=== PATIENT | female | born 1960 | race Caucasian/White ===

== ENCOUNTER 2018-06-23 13:50 | Emergency (ER) | payer BC ==
[~2018-06-23 13:50] MED LIST: ISOVUE-370 76%-LOCM 1 ML ONE; Iopamidol 370 76% 50 ML VIAL FS ONE
[2018-06-23] MEDS ORDERED: Morphine 4 MG/ML VIAL ONE ×2 (14:01→19:45)
[2018-06-23] MEDS ORDERED: Ondansetron PF 4 MG/2 ML Vial ONE (14:01)
[2018-06-23 14:30] LABS: #Basophils 0.1 thou/uL (0.0-0.2); #Lymphocytes 0.7 thou/uL (1.20-3.40); #Monocytes 0.3 thou/uL (0.11-0.59); #Neutrophils 7.4 thou/uL (1.40-6.50); %Basophils 0.9 % (0.0-1.0); %Eosinophils 0.1 % (0.0-10.0); %Lymphocytes 7.8 % (21.0-51.0); %Monocytes 3.7 % (0.0-10.0); %Neutrophils 87.4 % (42.0-75.0); Hemoglobin 14.8 g/dL (12.0-16.0); Mean Corpuscular HGB CONC 34.3 g/dL (32.0-36.0); Mean Corpuscular Hemoglobin 35.1 pg (27.0-31.0); Mean Platelet Volume 7.6 fL (7.4-10.4); Platelet Count 206 thou/uL (130-400); RBC Distribution Width 11.1 % (11.5-14.5); Red Blood Cell (RBC) Count 4.22 mill/uL (4.20-5.40); White Blood Cell (WBC) Count 8.4 thou/uL (4.8-10.8)
[2018-06-23 14:36] LABS: Bilirubin Negative (Negative); Blood, Urine Negative (Negative); Clarity CLEAR (Clear); Glucose, Urine (Dipstick) Negative (Negative); Leukocyte Negative (Negative); Nitrite Negative (Negative); Protein, Urine (Dipstick) Negative (Neg-Trace); Specific Gravity, Urine 1.013 (1.002-1.036); Urobilinogen 0.2 mg/dL (0.2-1.0); pH, Urine 6.5 (5.0-9.0)
[2018-06-23 14:45] LABS: ALT (SGPT) 29 U/L (8-55); AST (SGOT) 37 U/L (5-34); Albumin 4.6 g/dL (3.5-5.0); Alkaline Phosphatase 59 U/L (40-150); Anion Gap 20 mmol/L (10-20); BUN (Urea Nitrogen) 7 mg/dL (9.8-20.1); Bilirubin, Total 0.4 mg/dL (0.2-1.2); Calc. Creatinine Clearance 0 mL/min (70-130); Calcium 9.9 mg/dL (7.8-10.44); Carbon Dioxide 19 mmol/L (22-29); Chloride 99 mmol/L (98-107); Estimated GFR-MDRD Greater than 90; Globulin 2.7 g/dL (2.4-3.5); Glucose 78 mg/dL (70-105); Lipase 42 U/L (8-78); Potassium 4.1 mmol/L (3.5-5.1); Protein, Total 7.3 g/dL (6.0-8.3); Sodium 134 mmol/L (136-145)
--- NOTE | 2018-06-23 15:59 | CT ---
CT ABDOMEN AND PELVIS WITH IV CONTRAST: 06/23/2018 PROVIDED CLINICAL HISTORY: Right lower quadrant pain. COMPARISON: 08/18/2009 FINDINGS: The visualized lung bases are free or significant opacity. The liver, spleen, pancreas, kidneys, and adrenal glands demonstrate an unremarkable CT appearance. There is apparent focal mural thickening and adjacent mesenteric stranding about a ileal loop of ileu m, in the right lower quadrant. This is remote from the terminal ileum. The appendix is not distinc tly identified. Lack of oral contrast material limits evaluation. There is no evidence for bowel obstruction. There is no additional inflammatory fat stranding eviden t. No evidence for significant free fluid. No evidence for free air. The osseous structures demonstrate no concerning osteoblastic or osteolytic lesions. Degenerative ch anges are seen involving the spine. IMPRESSION: 1. Findings compatible with enteritis, involving a loop of small bowel within the right lower quadra nt. 2. Nonvisualization of the appendix. POS: SHARRON
[2018-06-23 18:14] LABS: #Monocytes 0.2 thou/uL (0.11-0.59); #Neutrophils 5.4 thou/uL (1.40-6.50); %Basophils 0.7 % (0.0-1.0); %Eosinophils 0.3 % (0.0-10.0); %Lymphocytes 15.4 % (21.0-51.0); %Monocytes 3.6 % (0.0-10.0); Hemoglobin 13.7 g/dL (12.0-16.0); Mean Corpuscular HGB CONC 34.3 g/dL (32.0-36.0); Mean Corpuscular Hemoglobin 34.2 pg (27.0-31.0); Mean Corpuscular Volume 99.6 fL (78.0-98.0); Mean Platelet Volume 7.4 fL (7.4-10.4); Platelet Count 199 thou/uL (130-400); Red Blood Cell (RBC) Count 4.01 mill/uL (4.20-5.40); White Blood Cell (WBC) Count 6.7 thou/uL (4.8-10.8)
--- NOTE | 2018-06-23 19:01 | CT ---
CT ABDOMEN AND PELVIS NONCONTRAST: 06/23/2018 HISTORY: Abdominal pain with nausea and vomiting. Pain is localized to the right lower quadrant. COMPARISON: Study obtained on 06/23/2018 at 1504 hours. FINDINGS: Oral contrast was administered for this portion of the examination. The small bowel is normal in fausto iber. The previously noted loop of small bowel with mural thickening with adjacent stranding is less apparent. Although the stranding is again present and is noted on the prior study, findings may be related to enteritis. Contrast is seen in the renal collecting systems and urinary bladder, related to the recent contraste d examination. Splenic granuloma is present. There has been no other interval change when compared to the prior contrasted study obtained earlier on today's date. One of the lung bases are imaged on this examination, and there are tiny, less than 4 mm, pleural-bas ed, nodular densities seen adjacent to the major fissure on the right, and at the lateral left lung b ase, which may be related to tiny focal areas of nodular pleural thickening. The lung bases are othe rwise clear. IMPRESSION: 1. No CT evidence of appendicitis. 2. While findings of the thickened loop of bowel and inflammatory changes in the right lower quadran t are less well delineated on this examination, the mild inflammatory change in the right lower quadr ant do persist and, again, findings may be related to enteritis. POS: SHARRONH
== END 2018-06-23 19:51 | disposition home or self-care (01) ==
LOC: ERS 13:50
DX: K52.9 Noninfective gastroenteritis and colitis, unspecified (principal); F17.210 Nicotine dependence, cigarettes, uncomplicated
CPT/HCPCS: 36415; 74176; 74177; 80053; 81003; 83690; 85025; 96361; 96374; 96375; 96376; J2270; J2405

== ENCOUNTER 2020-02-06 01:21 | Emergency (ER) | payer BC ==
[2020-02-06] MEDS ORDERED: Lidocaine 4% Cream 5 GM TUBE w/ Tegaderm ONE (01:44)
[2020-02-06] MEDS ORDERED: Lidocaine 1% (PF) 30 ML VIAL ONE (01:48)
[2020-02-06] MEDS ORDERED: Ketorolac Tromethamine 30 MG/ML VIAL ONE (02:25)
--- NOTE | 2020-02-06 07:54 | RAD ---
Radiograph right humerus 3 views: 02/06/2020 1:46 AM HISTORY: 59-year-old female status post acute traumatic injury to right arm FINDINGS: Fracture of surgical neck of humerus with moderate anteromedial angulation of fracture apex. Some dis placement. No fracture of the mid or distal portions of humerus. No dislocation of glenohumeral joint. IMPRESSION: Acute, traumatic, displaced fracture of proximal metaphysis of humerus.
--- NOTE | 2020-02-06 07:59 | RAD ---
Radiograph right foot 3 views: 02/06/2020 HISTORY: 59-year-old female with acute traumatic right foot pain COMPARISON: None FINDINGS: Focal mild angulation at the neck of the fifth proximal phalanx. No other areas suspicious for fracture. No dislocation. Diffuse osteopenia. IMPRESSION: 1. Slightly angulated fracture at distal metaphysis of proximal phalanx of right fifth toe. Uncertain whether old or acute. 2. Recommend correlation with presence or absence of point tenderness.
== END 2020-02-06 03:13 | disposition home or self-care (01) ==
LOC: ERS 01:21
DX: S42.211A Unspecified displaced fracture of surgical neck of right humerus, initial encounter for closed fracture (principal); F17.210 Nicotine dependence, cigarettes, uncomplicated; W01.198A Fall on same level from slipping, tripping and stumbling with subsequent striking against other object, initial encounter; Y92.009 Unspecified place in unspecified non-institutional (private) residence as the place of occurrence of the external cause
CPT/HCPCS: 12001; 96374; J1885; J2001

== ENCOUNTER 2020-02-10 07:45 | Outpatient (CLI) | payer BC, OTHER ==
--- NOTE | 2020-02-10 14:59 | RAD ---
XR Chest Pa Lat STANDARD History: Preop evaluation Comparison: None. Findings: Patient's right arm is at this time given the artifact of soft tissue attenuation. Lungs ar e without confluent airspace consolidation, pneumothorax or effusion. Calcified granuloma superior segment right lower lobe. Impression: No acute intrathoracic abnormality. Right humeral fracture.
[2020-02-10 16:17] LABS: #Basophils 0.1 thou/uL (0.0-0.2); #Eosinphils 0.1 thou/uL (0.0-0.7); #Lymphocytes 1.6 thou/uL (1.20-3.40); #Monocytes 0.4 thou/uL (0.11-0.59); #Neutrophils 3.6 thou/uL (1.40-6.50); %Basophils 1.1 % (0.0-1.0); %Eosinophils 1.3 % (0.0-10.0); %Lymphocytes 28.1 % (21.0-51.0); %Monocytes 6.8 % (0.0-10.0); %Neutrophils 62.7 % (42.0-75.0); Hemoglobin 12.8 g/dL (12.0-16.0); Mean Corpuscular HGB CONC 33.3 g/dL (32.0-36.0); Mean Corpuscular Hemoglobin 34.6 pg (27.0-31.0); Mean Platelet Volume 7.3 fL (7.4-10.4); Platelet Count 241 thou/uL (130-400); RBC Distribution Width 11.3 % (11.5-14.5); White Blood Cell (WBC) Count 5.7 thou/uL (4.8-10.8)
[2020-02-10 16:40] LABS: Anion Gap 19 mmol/L (10-20); BUN (Urea Nitrogen) 6 mg/dL (9.8-20.1); Calc. Creatinine Clearance 0 mL/min (70-130); Calcium 8.9 mg/dL (7.8-10.44); Carbon Dioxide 21 mmol/L (22-29); Chloride 99 mmol/L (98-107); Estimated GFR-MDRD 81; Glucose 80 mg/dL (70-105); Sodium 135 mmol/L (136-145)
[2020-02-11 13:02] LABS: SARS-CoV-2 MS2 Positive; SARS-CoV-2 N Gene Negative; SARS-CoV-2 S Gene Negative; SARS-CoV-2 by NAA Not Detected (NotDetected); SARS-CoV-2 orf1ab Negative
== END 2020-02-10 07:46 | disposition home or self-care (01) ==
LOC: LABBT 07:45
PROVIDERS: ATTEND Orthopaedic Surgery
DX: Z01.818 Encounter for other preprocedural examination (principal); Z20.828 Contact with and (suspected) exposure to other viral communicable diseases; S42.201A Unspecified fracture of upper end of right humerus, initial encounter for closed fracture
CPT/HCPCS: 71046; 80048; 85025; 87635; U0003

== ENCOUNTER 2020-02-10 13:30 | Outpatient (CLI) | payer BC, OTHER ==
--- NOTE | 2020-02-10 14:27 | CT ---
EXAM: CT Upper Ext Rt WO Con DATE: 02/10/2020 12:00 AM INDICATION: 59-year-old female with history of proximal right humerus fracture COMPARISON: Right humerus radiograph dated February 06, 2020 FINDING: There is diffuse osteopenia. There is a heavily comminuted proximal four-part proximal javy kong fracture. There is a minimally displaced greater tuberosity fracture component. There is a segmental fracture component involving the proximal humeral shaft. The humeral shaft component is dis placed anteriorly and medially one full shaft width. There is some apposition of the fracture fragments of approximately 1.5 cm. There is a mildly comminuted, nondisplaced anterior acromial proce ss fracture best seen on image 18 of series 4.. There is mild AC joint osteoarthrosis. No muscular atrophy is evident. There is a calcified granuloma within the superior segment of the right lower lob e. There are calcified lymph nodes within the right hilar region. IMPRESSION: 1. Comminuted proximal four-part humerus fracture 2. Nondisplaced comminuted anterior acromial process fracture.
== END 2020-02-10 13:31 | disposition home or self-care (01) ==
LOC: SCSCT 13:30
PROVIDERS: ATTEND Orthopaedic Surgery
DX: S42.251A Displaced fracture of greater tuberosity of right humerus, initial encounter for closed fracture (principal); S42.124A Nondisplaced fracture of acromial process, right shoulder, initial encounter for closed fracture
CPT/HCPCS: 71046; 80048; 85025; 87635; 93005; 93010; U0003

== ENCOUNTER 2020-02-12 08:48 | Day surgery (SDC) | payer BC ==
[2020-02-11 09:59] VITALS: BMI 22.8
[2020-02-12] MEDS ORDERED: Midazolam HCl 2 mg/2 ml Vial ONE (10:03)
[2020-02-12] MEDS ORDERED: Fentanyl 100 MCG/2 ML VIAL ONE ×2 (10:04→11:12)
[2020-02-12] MEDS ORDERED: Ketorolac Tromethamine 30 MG/ML VIAL ONE (10:35)
[2020-02-12] MEDS ORDERED: Lidocaine 1% PF 5 ML VIAL ONE (10:35)
[2020-02-12] MEDS ORDERED: Dexamethasone 20 MG/5 ML VIAL ONE (10:35)
[2020-02-12] MEDS ORDERED: Albuterol Sulfate HFA (OR ONLY) ONE (10:35)
[2020-02-12] MEDS ORDERED: Ondansetron PF 4 MG/2 ML Vial ONE (10:35)
[2020-02-12] MEDS ORDERED: Ropivacaine 0.5% HCl/PF (150 MG/30 ML VIAL) ONE (10:35)
[2020-02-12] MEDS ORDERED: PHENYLEPHRINE-NS 100 MCG/ML 10 ML SYRINGE ONE (10:35)
[2020-02-12] MEDS ORDERED: Rocuronium Bromide 10 MG/ML (10ML VIAL) ONE (10:35)
[2020-02-12] MEDS ORDERED: EPHEDRINE 25 MG/5 ML SYRINGE ONE (10:35)
[2020-02-12] MEDS ORDERED: PROPOFOL 200 MG/20 ML VIAL ONE (10:35)
[2020-02-12] MEDS ORDERED: Ropivacaine 0.2% HCl/PF (40 MG/20 ML VIAL) ONE (10:35)
[2020-02-12] MEDS ORDERED: Phenylephrine 10 MG/ML VIAL ONE (12:36)
[2020-02-12] MEDS ORDERED: SUGAMMADEX SODIUM 200 MG/2 ML VIAL ONE (12:55)
[2020-02-12] MEDS ORDERED: PACU-Morphine 4MG/ML VIAL SLOW IVP PRN (12:59)
[2020-02-12] MEDS ORDERED: Ondansetron HCl/PF 4 MG/2 ML Vial IVP PRN (12:59)
[2020-02-12] MEDS ORDERED: Promethazine HCl 25 MG/ML VIAL IM PRN (13:43)
[2020-02-12] MEDS ORDERED: Ropivacaine 0.2% 550 ML 550 ML NERVE BLCK SCH (13:43)
[2020-02-12] MEDS ORDERED: Ondansetron PF 4 MG/2 ML Vial IVP PRN (13:43)
[2020-02-12] MEDS ORDERED: HYDROcodone/Acetaminophen 5/325 mg Tablet PO PRN ×2 (13:43)
[2020-02-12] MEDS ORDERED: traMADol HCl 50 MG TAB PO PRN ×2 (13:43)
[2020-02-12] MEDS ORDERED: Zolpidem Tartrate 5 MG TAB PO PRN (13:43)
[2020-02-12] MEDS ORDERED: Fentanyl 100 MCG/2 ML VIAL SLOW IVP PRN (13:44)
[2020-02-12] MEDS ORDERED: Ketorolac Tromethamine 30 MG/ML VIAL IVP SCH (18:00)
--- NOTE | 2020-02-12 18:46 | RAD ---
THREE FLUROSCOPIC SPOT VIEWS OF THE RIGHT HUMERUS: 02/12/20 INDICATION: History of fracture repair to the right humerus. COMPARISON: Prior exam dated 02/06/20. FINDINGS: Since comparison examination there has been reduction and placement of an intramedullary isaías within t he proximal right humerus. Fracture alignment is new anatomic. Total fluoroscopic time was 79 seconds with accumulated dose of 6.78 mGy. IMPRESSION: ORIF of right humerus. POS: KRISTEN
--- NOTE | 2020-02-12 23:46 | EKG ---
Test Reason : PREOP Blood Pressure : / mmHG Vent. Rate : 130 BPM Atrial Rate : 097 BPM P-R Int : 128 ms QRS Dur : 072 ms QT Int : 342 ms P-R-T Axes : 066 023 044 degrees QTc Int : 503 ms Sinus rhythm with frequent Premature ventricular complexes Otherwise normal ECG Confirmed by Mercedes MARQUEZ ([id number]) on 02/12/2020 11:45:44 PM Referred By: AMANDA Confirmed By:Mercedes MARQUEZ
--- NOTE | 2020-02-14 10:54 | OP ---
DATE OF PROCEDURE: 02/12/2020 PREOPERATIVE DIAGNOSIS: Right proximal humerus fracture. POSTOPERATIVE DIAGNOSIS: Right proximal humerus fracture. PROCEDURE PERFORMED: Right proximal humeral nail. TRANSPORTATION MAINTENANCE SPECIALIST: Beau Ackerman PA-C. ANESTHESIOLOGIST: Anjelica Lau MD, and Terence Ortiz MD ANESTHESIA: Patient received a general endotracheal intubation and an interscalene block. ESTIMATED BLOOD LOSS: Less than 100 mL. TOURNIQUET TIME: None. IMPLANTS: Synthes 9.5 x 160 mm proximal humeral nail, 0 end cap, three 4.5 titanium MultiLoc screws and two 4 mm titanium locking screws. ANTIBIOTICS: Ancef 2 L g. COMPLICATIONS: None. INDICATIONS FOR PROCEDURE: Ms. Polk is a pleasant 59-year-old female being a previous patient of mine had a right rotator cuff tear, which was repaired. The patient presents after a ground level fall sustaining a right proximal humerus fracture. Had on CT scan essentially 2 parts in comminution of the midshaft. Given this, I felt the patient would best benefit from an intramedullary nailing of right proximal humerus. I discussed risks and benefits of surgery to include pain, scar, bleeding, infection, damage to vital structures, decreased range of motion and strength, nonunion, malunion, pain despite surgical intervention, loss of life or limb. The patient and family understood the risks and benefits of the procedure and elected to proceed. DESCRIPTION OF PROCEDURE: Time-out was performed designating the right upper extremity as the operative site based on site, consents, and marking. After time-out, the patient placed in beach chair position with the right upper extremity prepped and draped. I made an incision starting on the anterior edge of the acromion moving distally. We had marked out 6 cm and 4 cm from the anterior and posterior aspect of the acromion to help us with positioning of where the axillary nerve is, came down through the skin, went medially and took the deltoid insertion, anterior aspect of the deltoid off the patient's acromion. We came to the raphae, cleaned it out, coming down on the cuff. The cuff appeared intact throughout its course. We took a small portion of the acromion to help with our repair and also for visualization. We cut, split the head looking at the center-center position just off the edge of the cuff, put #5 Ethibond sutures in to help control the head, split the rotator cuff to expose the articular surface, placed a guide pin under fluoroscopic guidance. We had to adjust slightly, but we felt we had a good overall alignment on AP and lateral radiographs, passed our guide pin and then placed our opening reamer. We placed our nail down the length of the shaft. We were looked on AP lateral radiographs, put the patient's arm in neutral. We placed the screws about 25 degrees of retroversion, placed our first 4.5 screw, inserted the screw, the tip of the humeral head was about 3 or 4 mm. We tried to look at position for a calcar screw, but we did not feel that it would be in the appropriate place. Therefore, we did not placed. We placed a total of three 4.5 screws through our incision. Being happy with those placement of screws as well as with their position, we impacted the distal shaft onto the nail to help with some compression and apposition of bone. I felt overall we had good apposition and alignment. We placed 2 distal screws through stab incisions, blunt dissection down and drilling and filling in the shaft. The oblique distal screws we placed . We removed the insertor, placed an end cap. We put the arm through range of motion, felt that it had a good overall arc and planned range of motion. We washed out the shoulder and closed with #1 Ethibond the rotator cuff in a running fashion. We closed the deltoid passing through bone to #1s and then closed with a #1 Vicryl. The deltoid split as well as the remainder of the closure. Washed and closed the subcu with 2-0 and matty and closed the distal skin incision with matty. The patient will be placed back in a sling. She will begin elbow, wrist, and hand motion. She will be admitted overnight for observation and followed in-house. My educational assistant teacher helped me with positioning, closure, apposition, and reduction of the fracture throughout the case. Job ID: [id number] [facility]el
== END 2020-02-12 15:15 | disposition home or self-care (01) ==
LOC: SDC 08:48
PROVIDERS: ATTEND Orthopaedic Surgery
PROC: 0PSC06Z Reposition Right Humeral Head with Intramedullary Internal Fixation Device, Open Approach (ICD-10-PCS; principal; 2020-02-12)
PROC: 3E0T3BZ Introduction of Anesthetic Agent into Peripheral Nerves and Plexi, Percutaneous Approach (ICD-10-PCS; principal; 2020-02-12)
DX: S42.201A Unspecified fracture of upper end of right humerus, initial encounter for closed fracture (principal); G89.18 Other acute postprocedural pain; E78.5 Hyperlipidemia, unspecified; M45.9 Ankylosing spondylitis of unspecified sites in spine; Z87.891 Personal history of nicotine dependence; Z88.8 Allergy status to other drugs, medicaments and biological substances; Z91.018 Allergy to other foods; W19.XXXA Unspecified fall, initial encounter
CPT/HCPCS: 76000; 93005; 93010; A4306; C1713; J1100; J1885; J2250; J2370; J2405; J2704; J2795; J3010